=== PATIENT | female | born 1960 | race Caucasian/White ===

== ENCOUNTER 2017-07-16 17:13 | Emergency (ER) | payer OTHER ==
[~2017-07-16] VITALS: Wt 78.0 kg
[~2017-07-16 17:13] MED LIST: HYDR-3498 PO; IBUP-1542 PO
[2017-07-16] MEDS ORDERED: ACETAMINOPHEN 500 MG TAB PO STA (19:09)
[2017-07-16] MEDS ORDERED: ALBUTEROL 0.083% (NEB) 2.5 MG/3 ML AMP HHN STA (19:09)
[2017-07-16] MEDS ORDERED: IPRATROPIUM (NEB) 0.5 MG/2.5 ML AMP HHN ONE (19:30)
[2017-07-16] MEDS ORDERED: predniSONE 20 MG TAB PO ONE (19:30)
[2017-07-16] MEDS ORDERED: PRED20TA PO (19:39)
[2017-07-16] MEDS ORDERED: AZIT250T94 PO (19:39)
[2017-07-16] MEDS ORDERED: ALBU18HF INHALATION (19:39)
--- NOTE | 2017-07-16 19:42 | ERD ---
ER Documentation Chief Complaint Date/Time DATE: 07/16/17 TIME: 19:41 Chief Complaint COUGH X 3 DAYS HPI 57-year-old female presents with a cough and shortness of breath for the last 3 days. She has generalized anterior chest pain with coughing but no sustained pain. She denies fevers. She has productive mucus. Denies any history of asthma. ROS All systems reviewed and are negative except as per history of present illness. Medications Home Meds Active Scripts Albuterol Sulfate* (Ventolin HFA*) 18 Gm Hfa.aer.ad, 2 PUFF INHALATION Q4H, #1 INHALER Prov:JUAN BAIRD MD 07/16/17 Prednisone* (Prednisone*) 20 Mg Tab, 40 MG PO DAILY for 4 Days, TAB Start July 17, 2017 Prov:JUAN BAIRD MD 07/16/17 Azithromycin* (Zithromax*) 250 Mg Tablet, 250 MG PO .ZPACK DIRECTED, #6 TAB TAKE 500 MG (2 TABS) THE FIRST DAY THEN 250 MG (1 TAB) DAYS 2-5 Prov:JUAN BAIRD MD 07/16/17 Hydrocodone Bit-Acetaminophen* ([place]*) 5-325 Mg Tab, 1 TAB PO Q6 Y for PAIN, # 7 TAB Prov:TAD ALLEN PA-C 12/24/15 Ibuprofen* (Motrin*) 600 Mg Tab, 600 MG PO Q6, #20 TAB Prov:TAD ALLEN PA-C 12/24/15 Allergies Allergies: Coded Allergies: No Known Drug Allergies (Verified Allergy, Unknown, 12/24/15) PMhx/Soc Hx Alcohol Use: No Hx Substance Use: No Hx Tobacco Use: No Physical Exam Vitals Vital Signs Date Time Temp Pulse Resp B/P Pulse Ox O2 Delivery O2 Flow Rate FiO2 07/16/17 17:16 100.8 98 20 141/79 95 Physical Exam Const: [], [id number]. Head: Atraumatic Eyes: Normal Conjunctiva ENT: Normal External Ears, Nose and Mouth. TMs and oropharynx normal. Neck: Full range of motion..~ No meningismus. Resp: Clear to auscultation bilaterally with coarse breath sounds mild diffuse wheezing without rales or retractions appreciated. Cardio: Regular rate and rhythm, no murmurs Abd: Soft, non tender, non distended. Normal bowel sounds Skin: No petechiae or rashes Back: No midline or flank tenderness Ext: No cyanosis, or edema Neur: Awake and alert Psych: Normal Mood and Affect Results 24 hrs Current Medications Medications (Trade) Dose Ordered Sig/Nancy Route PRN Reason Start Time Stop Time Status Last Admin Dose Admin Prednisone (Prednisone) 40 mg ONCE ONCE PO 07/16/17 19:30 07/16/17 19:31 DC Albuterol (Proventil 0.083% (Neb)) 2.5 mg ONCE STAT HHN 07/16/17 19:09 07/16/17 19:11 DC Ipratropium [place] (Atrovent 0.02% (Neb)) 0.5 mg ONCE ONCE HHN 07/16/17 19:30 07/16/17 19:31 DC Acetaminophen (Tylenol Tab) 500 mg ONCE STAT PO 07/16/17 19:09 07/16/17 19:11 DC Procedures/MDM Chest X-ray 1V Interpreted by me: Soft Tissue: No acute abnormalities Bones: No acute abnormalities Mediastinum/Cardiac Silhouette/Lungs: [No acute abnormalities] impression- normal 1 view chest x-ray Patient is given albuterol and Atrovent treatment and prednisone 40 mg by mouth. Patient improved breath sounds without rales or retractions on serial exam. Patient has no evidence of hypoxemia or respiratory distress. Patient presents with signs of bronchitis with wheezing will be treated with Ventolin, Zithromax and a short course of prednisone at home and primary care follow-up and return precautions. The patient was stable with no new complaints during the ER course. Clinically, there is no current evidence to suggest meningitis, sepsis, acute abdomen, pneumonia, acute coronary syndrome, pulmonary embolism, or any other emergent condition appearing to require further evaluation or hospitalization. The patient should certainly return for any new or worsening symptoms per the aftercare instructions. They should otherwise follow-up with her primary care doctor for reevaluation this week. Departure Diagnosis: Primary Impression: URI, acute Condition: Stable Patient Instructions: Bronchitis With Wheezing (Adult) Additional Instructions: Cheque otro vez con shen doctor primario en el proximo clark or regresa para mas o nueva simptomas. JUAN BAIRD MD Jul 16, 2017 19:42
--- NOTE | 2017-07-16 20:32 | RADRPT ---
PROCEDURE: XR Chest. CLINICAL INDICATION: sob TECHNIQUE: Single frontal view of the chest was obtained COMPARISON: 12/24/2015 FINDINGS: The heart and mediastinum are within normal limits. The lungs are clear. There is no pleural effusion or pneumothorax. The bones and soft tissue show no acute change. IMPRESSION: No definite abnormalities are identified. RPTAT:AAJJ Robert Harris Physician Date Time Electronically viewed and signed by Robert Harris Physician on 07/16/2017 20:31 /
[2017-07-16 20:59] VITALS: BP 128/66; PULSE 75; RESP 17; TEMP 98.4
== END 2017-07-16 20:59 | disposition home or self-care (01) ==
LOC: FTE 17:13
DX: J06.9 Acute upper respiratory infection, unspecified (principal)
CPT/HCPCS: 71010; 94664; J7512; Z7502; Z7610

== ENCOUNTER 2017-11-11 08:50 | Emergency (ER) | END 2017-11-11 12:28 | disposition home or self-care (01) ==

== ENCOUNTER 2017-11-14 09:04 | Emergency (ER) | END 2017-11-14 12:48 | disposition home or self-care (01) ==

== ENCOUNTER 2018-08-03 07:12 | Emergency (ER) | END 2018-08-03 09:30 | disposition home or self-care (01) ==

== ENCOUNTER 2019-01-19 09:13 | Day surgery (SDC) | payer OTHER ==
[~2019-01-19] VITALS: Ht 152.4 cm; Wt 69.9 kg
[~2019-01-19 09:13] MED LIST changes: +ACET500C5 PO; +ALBU18HF INHALATION; +ALBU8.5H8 INH; +AMOX1TAB10 PO; +AZIT250T PO; +BENZ-6 PO; +DICY10CA40 PO; +IBUP-1561 PO; +LIDOCAINE 2% (SDV) 5 ML INJ ONE; +ONDA4TAB14 PO; +OSEL75CA23 PO; +PRED20TA PO; +PROPOFOL 200 MG INJ ONE
[2019-01-19 11:29] VITALS: Ht 152.4 cm; Wt 69.9 kg
[2019-01-19] MEDS ORDERED: NO DAILY MEDS (11:37)
--- NOTE | 2019-01-19 12:03 | PREAC ---
Date/Time of Note Date/Time of Note DATE: 01/19/19 TIME: 12:02 Anesthesia Eval and Record Evaluation Time Pre-Procedure Interview DATE: 01/19/19 TIME: 12:02 Age 59 Sex female NPO: 8 hrs Preoperative diagnosis fatty liver Planned procedure colonoscopy Past Medical History Past Medical History: Includes Pulm: Asthma Hepatic: Cirrhosis Surgery & Anesthesia Issues No known issue Meds Anticoagulation: No Beta Sage within 24 hr: No Reason Beta Sage not given: Pt. not on B-Sage Reported Medications [No Daily Meds] No Conflict Check 01/19/19 Discontinued Scripts Ondansetron (Ondansetron Odt) 4 Mg Tab.rapdis, 4 MG PO Q6H PRN for NAUSEA AND/OR VOMITING, #10 TAB Prov:HOANG ROMANO MD 08/03/18 Dicyclomine HCl (Dicyclomine HCl) 10 Mg Capsule, 10 MG PO TID PRN for ABDOMINAL CRAMPING, #20 CAP Prov:HOANG ROMANO MD 08/03/18 Albuterol Sulfate* (Proair HFA*) 8.5 Gm Hfa.aer.ad, 2 PUFF INH Q4, #1 INHALER Prov:PASILABASIA LUCEROASHOK F 11/14/17 Benzonatate* (Tessalon Perle*) 100 Mg Capsule, 100 MG PO Q8H PRN for COUGH, #20 CAP Prov:PASILABASIA LUCEROAR F 11/14/17 Amoxicillin/Potassium Clav (Amox-Clav 875-125 mg Tablet) 875-125 mg Tab, 1 TAB PO BID for 7 Days, #14 TAB Prov:BERNA KINGSTON F 11/14/17 Ibuprofen* (Motrin*) 400 Mg Tab, 400 MG PO Q6, #30 TAB take with food Prov:LAURA FRANCO-C 11/11/17 Acetaminophen* (Tylophen*) 500 Mg Capsule, 1 CAP PO Q6H PRN for PAIN AND OR ELEVATED TEMP, #20 CAP Prov:LAURA FRANCO-C 11/11/17 Benzonatate* (Tessalon Perle*) 100 Mg Capsule, 100 MG PO Q8H PRN for COUGH, #20 CAP Prov:LAURA FRANCO-C 11/11/17 Oseltamivir Phosphate* (Tamiflu*) 75 Mg Capsule, 75 MG PO BID for 5 Days, CAP Prov:LAURA FRANCO PA-C 11/11/17 Albuterol Sulfate* (Ventolin HFA*) 18 Gm Hfa.aer.ad, 2 PUFF INHALATION Q4H, #1 INHALER Prov:JUAN BAIRD MD 07/16/17 Prednisone* (Prednisone*) 20 Mg Tab, 40 MG PO DAILY for 4 Days, TAB Start July 17, 2017 Prov:JUAN BAIRD MD 07/16/17 Azithromycin* (Zithromax*) 250 Mg Tablet, 250 MG PO .ZPACK DIRECTED, #6 TAB TAKE 500 MG (2 TABS) THE FIRST DAY THEN 250 MG (1 TAB) DAYS 2-5 Prov:JUAN BAIRD MD 07/16/17 Hydrocodone Bit-Acetaminophen* ([place]*) 5-325 Mg Tab, 1 TAB PO Q6 PRN for PAIN, #7 TAB Prov:TAD ALLEN PA-C 12/24/15 Ibuprofen* (Motrin*) 600 Mg Tab, 600 MG PO Q6, #20 TAB Prov:TAD ALLEN PA-C 12/24/15 Meds reviewed: Yes Allergies Coded Allergies: No Known Drug Allergies (Verified Allergy, Unknown, 11/11/17) Allergies Reviewed: Yes Labs/Studies Labs Reviewed: Reviewed by anesthesiologist test: Negative Pre-procedure Exam Airway: Adequate mouth opening, Adequate thyromental dist Mallampati: Mallampati II Teeth: Normal Lung: Normal Heart: Normal ASA Physical Status ASA physical status: 2 Emergency: None Planned Anesthetic General/MAC: Mask, MAC Pre-operative Attestations Prior to commencing anesthesia and surgery, the patient was re-evaluated, there was verification of: *The patient's identity *The results of appropriate recent lab work and preoperative vital signs *The above evaluation not changing prior to induction *Anesthetic plan, risk benefits, alternative and complications discussed with patient/family; questions answered; patient/family understands, accepts and wishes to proceed. QUEENIE CEVALLOS Jan 19, 2019 12:03
[2019-01-19] MEDS ORDERED: PROPOFOL 40 ML ONE (12:15)
--- NOTE | 2019-01-19 13:37 | PAC ---
Date/Time of Note Date/Time of Note DATE: 01/19/19 TIME: 13:36 Post-Anesthesia Notes Post-Anesthesia Note Activity: WNL Respiratory function: WNL Cardiovascular function: WNL Mental status: Baseline Pain reasonably controlled: Yes Hydration appropriate: Yes Nausea/Vomiting absent: Yes QUEENIE CEVALLOS Jan 19, 2019 13:37
== END 2019-01-19 13:52 | disposition home or self-care (01) ==
LOC: GIL 09:13
PROVIDERS: ATTEND Internal Medicine Gastroenterology
DX: Z12.11 Encounter for screening for malignant neoplasm of colon (principal); K57.30 Diverticulosis of large intestine without perforation or abscess without bleeding; K64.9 Unspecified hemorrhoids; J45.909 Unspecified asthma, uncomplicated
CPT/HCPCS: 45378; Z7610

== ENCOUNTER 2019-04-21 16:12 | Emergency (ER) | payer OTHER ==
[~2019-04-21] VITALS: Ht 157.5 cm; Wt 78.5 kg
[~2019-04-21 16:12] MED LIST changes: -ACET500C5 PO; -ALBU18HF INHALATION; -ALBU8.5H8 INH; -AMOX1TAB10 PO; -AZIT250T PO; -BENZ-6 PO; -DICY10CA40 PO; -HYDR-3498 PO; -IBUP-1542 PO; -IBUP-1561 PO; -LIDOCAINE 2% (SDV) 5 ML INJ ONE; +NO DAILY MEDS; -ONDA4TAB14 PO; -OSEL75CA23 PO; -PRED20TA PO; -PROPOFOL 200 MG INJ ONE
[2019-04-21 16:16] VITALS: BP 151/80; PULSE 84; RESP 18; Ht 157.5 cm; Wt 78.5 kg
[2019-04-21] MEDS ORDERED: PRED20TA PO (16:55)
[2019-04-21] MEDS ORDERED: BENZ200C68 PO (16:55)
[2019-04-21] MEDS ORDERED: AZIT250T PO (16:55)
[2019-04-21] MEDS ORDERED: ALBU18HF INHALATION (16:55)
--- NOTE | 2019-04-22 00:42 | ERD ---
ER Documentation Chief Complaint Chief Complaint SORE THROAT,COUGH, NASAL CONGESTION HPI 59-year-old female presented to the emergency department complaining of intermittent sore throat, nasal congestion, productive cough for the past 3 days. She has had some mild shortness of breath and mild chest pain due to her cough. She states she has history of bronchitis in the past and this feels similar. She reports tactile fevers. She tried [id number] medication with some relief. Symptoms are currently moderate to severe. She denies any other symptoms currently. ROS All systems reviewed and are negative except as per history of present illness. Medications Home Meds Active Scripts Prednisone* (Prednisone*) 20 Mg Tab, 40 MG PO DAILY for 4 Days, TAB Prov:JENNIFER SIMMONS PA-C 04/21/19 Albuterol Sulfate* (Ventolin HFA*) 18 Gm Hfa.aer.ad, 2 PUFF INHALATION Q4H, #1 INHALER Prov:JENNIFER SIMMONS PA-C 04/21/19 Benzonatate* (Benzonatate*) 200 Mg Capsule, 200 MG PO TID PRN for COUGH, #15 CAP Prov:JENNIFER SIMMONS PA-C 04/21/19 Azithromycin* (Zithromax*) 250 Mg Tablet, 250 MG PO .ZPACK DIRECTED, #6 TAB TAKE 500 MG (2 TABS) THE FIRST DAY THEN 250 MG (1 TAB) DAYS 2-5 Prov:JENNIFER SIMMONS PA-C 04/21/19 Reported Medications [No Daily Meds] No Conflict Check 01/19/19 Allergies Allergies: Coded Allergies: No Known Drug Allergies (Verified Allergy, Unknown, 11/11/17) PMhx/Soc History of Surgery: No Anesthesia Reaction: No Hx Neurological Disorder: No Hx Respiratory Disorders: No Hx Cardiac Disorders: No Hx Psychiatric Problems: No Hx Miscellaneous Medical Probl: No Hx Alcohol Use: Yes (BEER ONCE A WEEK) Hx Substance Use: No Hx Tobacco Use: No Smoking Status: Never smoker FmHx Family History: No diabetes Physical Exam Vitals Vital Signs Date Temp Pulse Resp B/P (MAP) Pulse Ox O2 O2 Flow FiO2 Time Delivery Rate 04/21/19 99.8 84 18 151/80 99 16:16 (103) Physical Exam Const: No acute distress Head: Atraumatic Eyes: Normal Conjunctiva ENT: Normal External Ears, Nose and Mouth. Neck: Full range of motion. No meningismus. Resp: No respiratory distress. Mild inspiratory wheezing noted to bilateral upper lung buck. No crackles. Cardio: Regular rate and rhythm, no murmurs Skin: No petechiae or rashes Back: No midline or flank tenderness Ext: No cyanosis, or edema Neur: Awake and alert Psych: Normal Mood and Affect Procedures/MDM 59-year-old female presenting to the emergency department with signs and symptoms most consistent with acute bronchitis, possible bacterial etiology. No respiratory distress noted. Low suspicion for pulmonary embolism, pneumonia, pneumothorax, aortic dissection, acute coronary syndrome, or other emergencies. Patient will be discharged home with prescriptions to treat her symptoms. She was advised to return immediately for any new or worsening or concerning symptoms. Shared my medical decision making with the patient and she understands and agrees with the plan. Patient's blood pressure was elevated (>120/80) but appears stable without evidence of hypertension emergency or urgency. The patient is to follow-up and pursue outpatient monitoring and therapy with their primary care physician within 1 week and return immediately if they have any new, worsening, or concerning symptoms. Disclaimer: Inadvertent spelling and grammatical errors are likely due to EHR/dictation software use and do not reflect on the overall quality of patient care. Also, please note that the electronic time recorded on this note does not necessarily reflect the actual time of the patient encounter. Departure Diagnosis: Primary Impression: Acute bronchitis Condition: Fair Patient Instructions: Bronchitis, Antiobiotic Treatment (Adult) Referrals: [facility] () ted se lilly hecho un examen mdico de control que le indica que no est en shamir condicin que requiera tratamiento urgente en el Departamento de Emergencia. Un estudio ms profundo y el tratamiento de shen condicin pueden esperar sin ningn riesgo hasta que usted sea atendida/o en el consultorio de shen mdico o shamir clnica. Es responsabilidad suya arreglar shamir sandhya para el seguimiento del tomas. MANEJO DE CONDICIONES NO URGENTES EN EL FUTURO 1) Si usted tiene un mdico de atencin primaria: Usted debera llamar a shen mdico de atencin primaria antes de venir al departamento de emergencia. Despus de las horas de consultorio, shen doctor o shen asociado/a est disponible por telfono. El mdico o enfermero de sara en el servicio telefnico puede asesorarle por stephen medio para atender el problema, o tomas contrario se puede programar shamir sandhya. 2) Si usted no tiene un mdico de atencin primaria: Llame al mdico o clnica de referencia que aparece abajo rita las horas de consultorio para hacer shamir sandhya para que le vean. CLINICAS: [facility] [phone] [facility] [phone] [facility] [phone] [place] [phone] [place] [phone] [address] [facility] [phone] [address] Additional Instructions: Llame al doctor MAANA y leticia shamir SANDHYA PARA DENTRO DE 1-2 LORENZ.Dgale a la secretaria que nosotros le instruimos hacer esta sandhya.Avise o llame si shen condicin se empeora antes de la sandhya. Regresa aqui si peor o no mejor. JENNIFER SIMMONS PA-C Apr 22, 2019 00:42
== END 2019-04-21 17:10 | disposition home or self-care (01) ==
LOC: FTE 16:12
DX: J20.9 Acute bronchitis, unspecified (principal)
CPT/HCPCS: 99283